=== PATIENT | male | born 1990 | race Caucasian/White ===

== ENCOUNTER 2018-09-05 15:35 | Emergency (ER) | payer MEDICAID, OTHER ==
[~2018-09-05] VITALS: Ht 177.8 cm; Wt 72.0 kg
[~2018-09-05 15:35] MED LIST: ALBU8.5H4 IH; PRED20TA PO
[2018-09-05 15:41] VITALS: BP 143/67
[2018-09-05] MEDS ORDERED: CLIN150C2 PO (16:04)
[2018-09-05] MEDS ORDERED: DEC4T PO (16:04)
== END 2018-09-05 16:25 | disposition home or self-care (01) ==
LOC: ER 15:36
DX: S02.5XXA Fracture of tooth (traumatic), initial encounter for closed fracture (principal); K04.7 Periapical abscess without sinus; Z56.0 Unemployment, unspecified; Z88.1 Allergy status to other antibiotic agents; Z79.1 Long term (current) use of non-steroidal anti-inflammatories (NSAID); Z79.899 Other long term (current) drug therapy; X58.XXXA Exposure to other specified factors, initial encounter; Y93.89 Activity, other specified; Y92.89 Other specified places as the place of occurrence of the external cause; Y99.8 Other external cause status
CPT/HCPCS: 99283

== ENCOUNTER 2019-10-01 07:56 | Emergency (ER) | payer MEDICAID, OTHER ==
[~2019-10-01] VITALS: Ht 177.8 cm; Wt 79.0 kg
[~2019-10-01 07:56] MED LIST changes: +DEC4T PO
[2019-10-01 07:57] VITALS: BP 138/88
[2019-10-01] MEDS ORDERED: ketorolac tromethamine 15mg/ml inj. IM ONE (08:40)
== END 2019-10-01 09:00 | disposition home or self-care (01) ==
LOC: ER 07:56
DX: S83.8X1A Sprain of other specified parts of right knee, initial encounter (principal); S83.8X2A Sprain of other specified parts of left knee, initial encounter; Z72.89 Other problems related to lifestyle; Z88.1 Allergy status to other antibiotic agents; Z79.899 Other long term (current) drug therapy; X58.XXXA Exposure to other specified factors, initial encounter; Y93.89 Activity, other specified; Y92.89 Other specified places as the place of occurrence of the external cause; Y99.8 Other external cause status
CPT/HCPCS: 96372; 99283; J1885

== ENCOUNTER 2022-02-14 09:16 | Emergency (ER) | payer MEDICAID ==
[~2022-02-14] VITALS: Ht 175.3 cm; Wt 72.5 kg
[2022-02-14 09:37] VITALS: BP 131/71
[2022-02-14] MEDS ORDERED: PENI500T2 PO (11:03)
== END 2022-02-14 11:24 | disposition home or self-care (01) ==
LOC: ER 09:17
DX: F20.9 Schizophrenia, unspecified (principal); R21 Rash and other nonspecific skin eruption; L29.9 Pruritus, unspecified; F17.210 Nicotine dependence, cigarettes, uncomplicated; Z88.1 Allergy status to other antibiotic agents
CPT/HCPCS: 87880; 99283

== ENCOUNTER 2022-03-04 04:12 | Emergency (ER) | payer MEDICAID ==
[~2022-03-04] VITALS: Ht 172.7 cm; Wt 72.7 kg
[~2022-03-04 04:12] MED LIST changes: +PENI500T2 PO
[2022-03-04] MEDS ORDERED: fentaNYL/PF 50MCG/1 ML 2ML syringe IV ONE (04:40)
[2022-03-04] MEDS ORDERED: ondansetron/PF 4mg/2ml inj IV ONE (04:40)
[2022-03-04] MEDS ORDERED: ketorolac trometh. 30mg/ml inj. IV ONE (04:40)
[2022-03-04 05:36] LABS: CLARITY,URINE SLIGHTLY CLOUDY (Clear); COLOR,URINE YELLOW (Yellow); GLUCOSE, URINE NEGATIVE (Neg); KETONES,URINE >=80 mg/dl (Neg); LEUKOCYTE ESTERASE ,URINE NEGATIVE (Neg); NITRITES, URINE NEGATIVE (Neg); OCCULT BLOOD,URINE LARGE (Neg); PROTEIN,URINE 30 mg/dl (Neg); UA COLLECTION TYPE CLN CATCH MIDSTREAM
[2022-03-04 05:39] LABS: RBC,URINE 50-100 /HPF (0-2)
[2022-03-04 05:41] LABS: BACTERIA,URINE NONE SEEN /HPF (Neg); MUCUS STRANDS MODERATE /LPF (Neg); SPERM FEW /HPF (NEGATIVE); SQUAMOUS EPITHELIAL CELL,UR FEW /LPF (FEW)
[2022-03-04 05:46] LABS: ALANINE AMINOTRANSFERASE 29 U/L (12-78); ALBUMIN 4.5 G/DL (3.4-5.0); ALBUMIN/GLOBULIN RATIO 1.3 (1.1-1.5); ALKALINE PHOSPHATASE 54 IU/L (46-116); ANION GAP 13 (8-16); ASPARTATE AMINO TRANSFERASE 10 U/L (10-37); BILIRUBIN,TOTAL 0.3 MG/DL (0.1-1.0); BLOOD UREA NITROGEN 17 MG/DL (7-18); BUN/CREATININE RATIO 15.7 (5.4-32.0); CALCIUM 9.4 MG/DL (8.5-10.1); CHLORIDE 102 MMOL/L (99-107); CREATININE 1.08 MG/DL (0.60-1.10); GLUCOSE 137 MG/DL (70-104); LIPASE 61 U/L (73-393); SODIUM 141 MMOL/L (135-145); TOTAL CARBON DIOXIDE 25.8 MMOL/L (24-32); TOTAL PROTEIN 8.1 G/DL (6.4-8.2); eGFR 80 ML/MIN
[2022-03-04 05:50] LABS: BASOPHILS # (AUTO) 0.1 X10'3 (0-0.2); HEMOGLOBIN 15.2 g/dl (14.0-17.9); MONOCYTES # (AUTO) 0.8 X10'3 (0-0.9)
[2022-03-04 05:53] LABS: BASOPHILS % (AUTO) 1.1 % (0-1); EOSINOPHILS # (AUTO) 0.3 X10'3 (0-0.9); EOSINOPHILS % (AUTO) 3.4 % (0-6); HEMATOCRIT 44.1 % (42.0-52.0); LYMPHOCYTES # (AUTO) 3.7 X10'3 (1.1-4.8); MEAN CORPUSCULAR HEMOGLOBIN 31.5 PG (27.0-31.0); MEAN CORPUSCULAR HGB CONC 34.5 g/dL (33.0-36.5); MEAN CORPUSCULAR VOLUME 91.2 FL (78-98); MEAN PLATELET VOLUME 8.5 FL (7.4-10.4); MONOCYTES % (AUTO) 10.5 % (2-12); PLATELET COUNT 269 X10'3 (140-440); RED BLOOD COUNT 4.84 X10'6 (4.70-6.10); WHITE BLOOD COUNT 7.9 X10'3 (4.5-11.0)
[2022-03-04] MEDS ORDERED: HYDR-3965 PO (06:08)
[2022-03-04] MEDS ORDERED: ONDA4TAB12 PO (06:08)
[2022-03-04] MEDS ORDERED: acetaminophen 325mg tablet PO ONE (06:10)
[2022-03-04] MEDS ORDERED: HYDROcodone/acetaminophen 5mg/325mg tablet PO ONE (06:10)
[2022-03-04 07:01] VITALS: BP 128/77
[2022-03-04] MEDS ORDERED: FLO0.4C PO (07:04)
== END 2022-03-04 07:07 | disposition home or self-care (01) ==
LOC: ER 04:13
DX: N20.0 Calculus of kidney (principal); F32.A Depression, unspecified; Z88.1 Allergy status to other antibiotic agents; Z79.899 Other long term (current) drug therapy
CPT/HCPCS: 36415; 74176; 80053; 81001; 83690; 85025; 87088; 96374; 96375; 99284; J1885; J2405; J3010

== ENCOUNTER 2022-04-07 23:21 | Emergency (ER) | payer MEDICAID ==
[~2022-04-07] VITALS: Ht 177.8 cm; Wt 68.9 kg
[~2022-04-07 23:21] MED LIST changes: +ONDA4TAB12 PO; -PENI500T2 PO
--- NOTE | 2022-04-07 23:55 | NUR ---
SPOKE TO DR ROGER CONCERNING PT. GIVEN THE OK TO ORDER TESTICULAR US. ORDER PLACED. PT ROOMED. US PAGED.
[2022-04-08] MEDS ORDERED: fentaNYL/PF 50MCG/1 ML 2ML syringe IV ONE
[2022-04-08] MEDS ORDERED: normal saline 1000ML IV soln IVB ONE
[2022-04-08] MEDS ORDERED: ketorolac trometh. 30mg/ml inj. IV ONE
[2022-04-08] MEDS ORDERED: HYDR-3965 PO (01:34)
[2022-04-08 01:43] VITALS: BP 131/70
== END 2022-04-08 01:44 | disposition home or self-care (01) ==
LOC: ER 23:21
DX: N23 Unspecified renal colic (principal); F32.A Depression, unspecified; F17.210 Nicotine dependence, cigarettes, uncomplicated; Z88.1 Allergy status to other antibiotic agents; Z79.899 Other long term (current) drug therapy
CPT/HCPCS: 96361; 96374; 96375; 99284; J1885; J3010; J7030; 81003

== ENCOUNTER 2023-03-24 20:37 | Emergency (ER) | payer MEDICAID | END 2023-03-24 22:10 | disposition left against medical advice (07) | LOC: ER 20:37 | DX: M25.559 Pain in unspecified hip (principal); Z53.21 Procedure and treatment not carried out due to patient leaving prior to being seen by health care provider ==

== ENCOUNTER 2024-04-12 08:26 | Emergency (ER) | payer BC, MEDICAID ==
[~2024-04-12] VITALS: Ht 177.8 cm; Wt 70.5 kg
[~2024-04-12 08:26] MED LIST changes: +ONDA-243 PO; -ONDA4TAB12 PO
[2024-04-12 08:30] VITALS: BP 126/76; PULSE 70; RESP 16; O2SAT 100
== END 2024-04-12 09:16 | disposition home or self-care (01) ==
LOC: ER 08:26
DX: U07.1 COVID-19 (principal); F32.A Depression, unspecified; Z88.1 Allergy status to other antibiotic agents; Z79.899 Other long term (current) drug therapy; Z79.52 Long term (current) use of systemic steroids; Z72.89 Other problems related to lifestyle; Z87.442 Personal history of urinary calculi
CPT/HCPCS: 36415; 87811; 99283

== ENCOUNTER 2024-12-26 22:01 | Emergency (ER) | payer BC ==
[~2024-12-26] VITALS: Ht 177.8 cm; Wt 68.2 kg
[2024-12-26 22:13] VITALS: BP 129/93; PULSE 85; RESP 18; TEMP 98.2; O2SAT 99
--- NOTE | 2024-12-26 23:45 | Physician Documentation ---
History of Present Illness ~ Chief Complaint: Abscess Stated Complaint: ABSCESS ON HAND Time Seen by MD: 23:15 Primary Medical Doctor: NONE HPI This is a 34-year-old male who presents with a area of pain and swelling to the palm of his left hand, patient reports that it has been present for several weeks now though worse in the last 3-4 days, patient reports that it began with a foreign body sensation in that hand though was unable to see a foreign body. Patient reports spontaneous purulent drainage from the area today after taking a shower. Patient reports that he does work in a [employer] so he may have been exposed to broken glass or metal shards. Patient reports full range of motion in his hand and fingers and no fever chills, or other systemic symptoms. Patient reports no other acute symptoms or concerns. Patient reports he was unsure of his last tetanus booster. Tetanus Within 5 Years: No Medication Reconciliation Allergies: Coded Allergies: cephalexin (Verified Allergy, Unknown, 04/12/24) Scheduled Albuterol Inhaler* (Albuterol Inhaler*), 2 PUFFS IH Q4H Dexamethasone (Decadron), 8 MG PO O ONDANSETRON ODT 4mg tablet (Ondansetron Odt), 1 TABLET PO Q6H Prednisone* (Prednisone*), 60 MG PO DAILY Sulfamethoxazole/Trimethoprim (Septra Ds Tab), 1 TAB PO Q12H Past Medical History Past Medical History: Kidney Stones, *MUSCULOSKELETAL*, Depression Past Surgical History: no surgical history Alcohol Use: Occasionally Drug Use: none Lives with: Spouse Lives In: Home Occupation: employed Review of Systems ROS Pain and swelling to area of left palm as stated above in the HPI, otherwise all systems are reviewed and negative. Physical Exam Vital Signs: Temperature: 98.2, Source: Temporal, Heart Rate: 85, Respiratory Rate: 18, BP: 129/93, Pulse Oximetry: 99, Weight: 68.200 Oxygen Flow Rate: 0 Physical Exam VITALS: Reviewed and as above. GENERAL: Alert, nontoxic appearing, no apparent distress. RESPIRATORY: No increased work of breathing, no respiratory distress, speaking in full clear sentences SKIN: 1 cm round raised tender area to palm of left hand, no erythema, no fluctuance, area appears to be very callused and there does appear to be a small hole in the center, no obvious foreign body observed MUSCULOSKELETAL: Left hand and fingers full range of motion intact Procedures I & D Procedure : Site: Palm of left hand Anesthesia: none Blade Size: 11 Prep/Supplies: betadine prep, irrigated Incision: mass incised, pus drained Tolerated Procedure Well?: yes, no complications Procedure Note Patient requested lidocaine not be used as he has a severe fear of needle house and would rather have me just cut the area open, a 0.5 cm incision was made in the palm of the hand extending the area of spontaneous drainage to facilitate additional drainage of purulent material and removal of a single piece of loculation. No foreign body observed. Progress Results/Orders Results/Orders Orders - FRANCIE CRUZ Laceration/I&D Tray Set Up (12/26/24 23:38) Hand, Complete (3vw Min) (12/26/24 23:51) Completed Orders - FRANCIE CRUZ Lidocaine 1% W/Epi 1:200,000 (Xylocaine (12/26/24 23:40) Tetanus/Pertuss/Diph Acell/Pf (Boostrix (12/26/24 23:40) Hand, Complete (3vw Min) (12/26/24 23:51) Medications Received in ER Medications (Trade) Dose Ordered Sig/Joanna Route PRN Reason Start Time Stop Time Status Last Admin Dose Admin (Boostrix vaccine syringe) 0.5 ml ONCE ONCE IMVAC 12/26/24 23:40 12/26/24 23:42 DC 12/27/24 00:25 0.5 ML Vital Signs 12/26/24 22:13 Temp 98.2 Pulse 85 Resp 18 B/P (MAP) 129/93 Pulse Ox 99 O2 Flow Rate 0 Medical Decision Making Findings This 34-year-old male presents with an area of pain and swelling to the palm of his left hand worsening over the last several days, physical exam was consistent with appeared to be a small abscess underneath a heavily callused area of his hand, was reassuring that the abscess was spontaneously draining though the wound was expanded slightly using an 11 blade and a pair of pickups to facilitate the drainage of small amount of purulent fluid in an small area of loculation, the area was then further explored demonstrating no significant cavity and no evidence of retained foreign body. It was reassuring that patient had full range of motion to the hand and appears there was no tendon involvement, additionally there was no erythema extending past the area of pain and swelling to indicate a more serious infection. Patient's tetanus booster was given and patient was prescribed a short course of antibiotic. Remainder of physical exam was benign and patient is appropriate for outpatient follow up. Differential Dx:Considerations: Include: Abscess, Bacteremia, Cellulitis, Felon, Other (Retained foreign body) Departure Disposition: HOME / SELF CARE / HOMELESS Impression: Primary Impression: Abscess Condition: Improved Discharge Instructions: Abscess, Care After, Incision and Drainage Additional Instructions: Keep the area clean dry and covered until healed. Use a warm moist compress on the area and then scrubbed and wash it at least twice a day to help keep the area draining. Please take the antibiotics as prescribed. Please follow up with your primary care provider in the next few days. Please return to the [facility] department for any new or worsening concerning symptoms including but not limited to increased swelling, redness, or pain to the area or if you develop a fever. Referrals: NO PRIMARY CARE PROVIDER (PCP) Prescriptions Sulfamethoxazole/Trimethoprim (Septra Ds Tab) 800 Mg/160 Mg Tablet 1 TAB PO Q12H for 5 Days, #10 TAB Prov: FRANCIE CRUZ 12/27/24 Education Educated: Patient Educated regarding: diagnosis, treatment, prognosis, need for follow up Signature Scribe Signature: No scribe Attestation: The note accurately reflects work and decisions made by me.DAVID Weiner 12/27/24 00:33 FRANCIE CRUZ December 26, 2024 23:45
[2024-12-27] MEDS: LIDOcaine 1% W/epiNEPHrine 1:200,000 10ml vial IJ ONE (00:21)
[2024-12-27] MEDS: TETanus/Pertussis (Acell)/Diphther VAC/PF (Tdap-Adult) 0.5ml syringe IMVAC ONE (00:25)
[2024-12-27] MEDS ORDERED: SULF1TAB45 PO (00:27)
--- NOTE | 2024-12-27 02:22 | RADIOLOGY REPORT ---
Clinical History Wound to hand with FB sensation LEFT PALM Comparison None Technique: left hand 3 views Without Contrast JACK SANCHEZ, [id number] Findings: Bones: No displaced fracture. healed fracture of the fifth metacarpal Soft tissues: No swelling. No foreign body Joints: Visualized joints are within normal limits. Impression: 1. No acute fracture or dislocation. 2. No radiopaque foreign body. This report was electronically signed by Sam Gregg MD on 12/27/2024 2:19:32 AM.
== END 2024-12-27 01:09 | disposition home or self-care (01) ==
LOC: ER 22:02
DX: L02.512 Cutaneous abscess of left hand (principal); Z88.1 Allergy status to other antibiotic agents
CPT/HCPCS: 10060; 73130; 90471; 90715; 99283